=== PATIENT | female | born 1965 | race African-American/Black ===

== ENCOUNTER 2016-07-20 08:51 | Emergency (ER) | payer BC, OTHER ==
[~2016-07-20] VITALS: Ht 160 cm; Wt 70.0 kg
[~2016-07-20 08:51] MED LIST: ESOM20CA PO; FLUT16SP15 BOTHNSTRLS; LEVO500T89 PO
[2016-07-20] MEDS ORDERED: PROT40 PO (09:02)
[2016-07-20] MEDS ORDERED: ALPR-392 PO (09:02)
[2016-07-20] MEDS ORDERED: AMIT10TA6 PO (09:02)
[2016-07-20] MEDS ORDERED: TAMO20TA4 PO (09:02)
[2016-07-20] MEDS ORDERED: METHYLPREDNISOLONE SOD SUCC 125 MG/2 ML VIAL IV STA (09:20)
[2016-07-20] MEDS ORDERED: IPRATROPIUM BROMIDE (0.02%) 0.5MG/2.5ML NEB HHN STA (09:20)
[2016-07-20] MEDS ORDERED: ALBUTEROL (0.083%) 2.5MG/3ML NEB HHN STA (09:20)
[2016-07-20] MEDS ORDERED: LEVOFLOXACIN 750MG PREMIX 150 ML IV ONE (09:30)
[2016-07-20] MEDS ORDERED: SODIUM CHLORIDE 0.9% 1000ML BAG (SEPSIS BOLUS) IV ONE (09:30)
[2016-07-20] MEDS ORDERED: MAGNESIUM 2 G PREMIX 50 ML IV ONE (09:30)
[2016-07-20 09:52] LABS: BASOPHILS % 0.5 % (0.0-2.0); EOSINOPHILS % 2.6 % (0.0-5.0); HEMOGLOBIN. 12.1 g/dL (12.0-16.0); LYMPHOCYTES % 39.4 % (20.0-50.0); MEAN CORPUSCULAR HEMOGLOBIN 27.9 pg (28.0-32.0); MEAN CORPUSCULAR HGB CONC 33.5 g/dL (31.0-37.0); MEAN CORPUSCULAR VOLUME 83.5 fL (81.0-99.0); MEAN PLATELET VOLUME 9.3 fl (7.4-10.4); MONOCYTES % 7.7 % (2.0-8.0); NEUTROPHILS % 49.8 % (40.0-76.0); PLATELET 269 x1000/uL (130-400); RED BLOOD CELL COUNT 4.31 mill/uL (4.2-5.4); RED CELL DISTRIBUTION WIDTH 13.6 % (11.6-14.6); WHITE BLOOD COUNT 7.9 x1000/uL (4.5-11.0)
[2016-07-20 10:01] LABS: PARTIAL THROMBOPLASTIN TIME 24.2 sec (24.0-34.0); PROTHROMBIN TIME 10.5 sec
[2016-07-20 10:03] LABS: ANION GAP 12; CALCIUM 8.9 mg/dL (8.5-10.1); CARBON DIOXIDE 26 mEq/L (21-32); CHLORIDE 107 mEq/L (98-107); INDEX HEMOLYSI 1 (1-3); INDEX ICTERIC 1 (1-4); INDEX LIPEMIC 1 (1-3); UREA NITROGEN BLOOD 7 mg/dL (7-21)
[2016-07-20 10:06] LABS: eGFR > 60 mL/min (>60)
[2016-07-20 10:08] LABS: NT PRO B-TYPE NATRIURETIC PEP 46 pg/mL (5-125); TROPONIN I 0.02 ng/mL (0.00-0.04)
[2016-07-20 12:45] VITALS: BP 112/68
== END 2016-07-20 13:30 | disposition home or self-care (01) ==
LOC: ER 09:22
DX: J40 Bronchitis, not specified as acute or chronic (principal); I10 Essential (primary) hypertension; K21.9 Gastro-esophageal reflux disease without esophagitis; F32.9 Major depressive disorder, single episode, unspecified; E03.9 Hypothyroidism, unspecified; Z79.899 Other long term (current) drug therapy; Z85.3 Personal history of malignant neoplasm of breast
CPT/HCPCS: 36415; 71010; 80048; 83605; 83880; 84484; 85025; 85610; 85730; 87040; 93005; 94640; 96365; 96375; 99285; J1956; J2930; J3475; J7030; J7611; Z7610

== ENCOUNTER 2016-12-07 10:30 | Emergency (ER) | payer BC ==
[~2016-12-07] VITALS: Ht 167.6 cm; Wt 75.0 kg
[~2016-12-07 10:30] MED LIST changes: +ALPR-392 PO; +AMIT10TA6 PO; +PROT40 PO; +TAMO20TA4 PO
[2016-12-07] MEDS ORDERED: ACETAMINOPHEN 325MG TABLET PO ONE (12:30)
[2016-12-07 14:31] LABS: CLARITY URINE CLEAR (CLEAR); COLOR URINE YELLOW (YELLOW); GLUCOSE URINE NEGATIVE (NEGATIVE); KETONES URINE NEGATIVE (NEGATIVE); LEUKOCYTE ESTERASE URINE NEGATIVE (NEGATIVE); NITRITE URINE NEGATIVE (NEGATIVE); OCCULT BLOOD URINE NEGATIVE (NEGATIVE); PH URINE 7.5 (4.5-8.0); PROTEIN URINE NEGATIVE (NEGATIVE); SPECIFIC GRAVITY URINE 1.011 (1.005-1.030); UROBILINOGEN URINE 0.2 E.U./dL (0.2-1.0)
[2016-12-07 14:58] LABS: *AMPHETAMINES SCREEN URINE NEGATIVE (NEGATIVE); *BARBITURATES SCREEN URINE NEGATIVE (NEGATIVE); *BENZODIAZEPINES SCREEN URINE NEGATIVE (NEGATIVE); *COCAINE SCREEN URINE NEGATIVE (NEGATIVE); CANNABINOID URINE SCREEN NEGATIVE (NEGATIVE); METHADONE URINE SCREEN NEGATIVE (NEGATIVE); OPIATES URINE SCREEN NEGATIVE (NEGATIVE); PHENCYCLIDINE URINE SCREEN NEGATIVE (NEGATIVE)
[2016-12-07 17:46] VITALS: BP 138/79
== END 2016-12-07 17:47 | disposition home or self-care (01) ==
LOC: ER 10:30
DX: S20.211A Contusion of right front wall of thorax, initial encounter (principal); E78.00 Pure hypercholesterolemia, unspecified; Z85.3 Personal history of malignant neoplasm of breast; W19.XXXA Unspecified fall, initial encounter; Y93.89 Activity, other specified; Y92.89 Other specified places as the place of occurrence of the external cause; Y99.8 Other external cause status
CPT/HCPCS: 71101; 80305; 81003; 81025; 99285; Z7610

== ENCOUNTER 2017-03-16 21:43 | Emergency (ER) | payer BC ==
[~2017-03-16] VITALS: Ht 160 cm; Wt 62.0 kg
[2017-03-16 22:58] VITALS: BP 170/92
== END 2017-03-17 04:45 | disposition left against medical advice (07) ==
LOC: ER 21:47
DX: R06.02 Shortness of breath (principal); Z53.21 Procedure and treatment not carried out due to patient leaving prior to being seen by health care provider
CPT/HCPCS: 93005

== ENCOUNTER 2017-04-30 09:59 | Emergency (ER) | payer BC, MEDICAID ==
[~2017-04-30] VITALS: Ht 162.6 cm; Wt 64.0 kg
[2017-04-30] MEDS ORDERED: LEVO75TA7 PO (10:32)
[2017-04-30] MEDS ORDERED: SIMV10TA6 PO (10:32)
[2017-04-30] MEDS ORDERED: ONDANSETRON HCL 4MG/2ML VIAL IM STA (10:56)
[2017-04-30 11:45] LABS: HEMATOCRIT. 37.6 % (36.0-48.0); HEMOGLOBIN. 12.6 g/dL (12.0-16.0); MEAN CORPUSCULAR HEMOGLOBIN 28.2 pg (28.0-32.0); MEAN CORPUSCULAR VOLUME 84.4 fL (81.0-99.0); MEAN PLATELET VOLUME 9.5 fl (7.4-10.4); PLATELET 220 x1000/uL (130-400); RED BLOOD CELL COUNT 4.46 mill/uL (4.2-5.4); RED CELL DISTRIBUTION WIDTH 12.8 % (11.6-14.6)
[2017-04-30 11:53] LABS: INR 1.1
[2017-04-30 12:02] LABS: CARBON DIOXIDE 26 mEq/L (21-32); CHLORIDE 104 mEq/L (98-107)
[2017-04-30 12:08] LABS: PLATELET ESTIMATE NORMAL
[2017-04-30 12:42] LABS: CLARITY URINE CLEAR (CLEAR); COLOR URINE YELLOW (YELLOW); KETONES URINE NEGATIVE (NEGATIVE); LEUKOCYTE ESTERASE URINE NEGATIVE (NEGATIVE); NITRITE URINE NEGATIVE (NEGATIVE); OCCULT BLOOD URINE NEGATIVE (NEGATIVE); PROTEIN URINE NEGATIVE (NEGATIVE); SPECIFIC GRAVITY URINE 1.013 (1.005-1.030); UROBILINOGEN URINE 0.2 E.U./dL (0.2-1.0)
[2017-04-30] MEDS ORDERED: IBUPROFEN 600MG TABLET PO ONE (13:15)
[2017-04-30 14:23] VITALS: BP 164/89
== END 2017-04-30 14:29 | disposition home or self-care (01) ==
LOC: ER 10:29
DX: R05 Cough (principal); A08.4 Viral intestinal infection, unspecified; I10 Essential (primary) hypertension; E78.00 Pure hypercholesterolemia, unspecified; E05.90 Thyrotoxicosis, unspecified without thyrotoxic crisis or storm; Z85.3 Personal history of malignant neoplasm of breast; Z90.710 Acquired absence of both cervix and uterus; Z90.11 Acquired absence of right breast and nipple
CPT/HCPCS: 36415; 71045; 80053; 81003; 83690; 85025; 85610; 87804; 93005; 96372; 99285; J2405

== ENCOUNTER 2017-12-10 11:11 | Emergency (ER) | payer MEDICAID ==
[~2017-12-10] VITALS: Ht 162.6 cm; Wt 64.0 kg
[~2017-12-10 11:11] MED LIST changes: -LEVO500T89 PO; +LEVO75TA7 PO; +SIMV10TA6 PO
[2017-12-10 11:31] VITALS: BP 118/88
== END 2017-12-10 15:45 | disposition left against medical advice (07) ==
LOC: ER 11:11
DX: Z53.21 Procedure and treatment not carried out due to patient leaving prior to being seen by health care provider (principal)

== ENCOUNTER 2021-10-10 06:41 | Emergency (ER) | payer MEDICAID ==
[~2021-10-10] VITALS: Ht 160 cm; Wt 70.1 kg
[~2021-10-10 06:41] MED LIST changes: -SIMV10TA6 PO; +SIMV10TA97 PO
[2021-10-10 08:45] VITALS: BP 137/78
[2021-10-10] MEDS ORDERED: IBUPROFEN 400MG TABLET PO ONE (08:45)
[2021-10-10 08:55] LABS: CLARITY URINE TURBID (CLEAR); COLOR URINE DARK YELLOW (YELLOW); KETONES URINE NEGATIVE (NEGATIVE); LEUKOCYTE ESTERASE URINE 3+ (NEGATIVE); NITRITE URINE POSITIVE (NEGATIVE); OCCULT BLOOD URINE 3+ (NEGATIVE); PROTEIN URINE 2+ (NEGATIVE); SPECIFIC GRAVITY URINE 1.014 (1.005-1.030)
[2021-10-10] MEDS ORDERED: NITR100C MT (09:26)
[2021-10-10] MEDS ORDERED: ONDANSETRON HCL 4MG TABLET PO ONE (09:30)
[2021-10-10] MEDS ORDERED: NITR-87 MT (09:33)
[2021-10-10] MEDS ORDERED: ONDA4TAB50 MT (09:33)
[2021-10-10] MEDS ORDERED: NITROFURANTOIN 100MG M/M CAPSULE PO SCH (21:00)
== END 2021-10-10 09:49 | disposition home or self-care (01) ==
LOC: ER 06:53
DX: N39.0 Urinary tract infection, site not specified (principal); R31.0 Gross hematuria; I10 Essential (primary) hypertension; E78.00 Pure hypercholesterolemia, unspecified; E03.9 Hypothyroidism, unspecified; Z90.710 Acquired absence of both cervix and uterus; Z90.10 Acquired absence of unspecified breast and nipple
CPT/HCPCS: 81003; 87077; 87086; 87186; 99283; Q0162